=== PATIENT | female | born 1995 | race Caucasian/White ===

== ENCOUNTER 2016-12-17 18:57 | Emergency (ER) | payer OTHER ==
[~2016-12-17] VITALS: Ht 160 cm; Wt 89.4 kg
[2016-12-17 21:12] LABS: UA SPECIFIC GRAVITY >=1.030 (1.005-1.035); microscopic required? YES; urine erythrocyte NEGATIVE (NEGATIVE)
[2016-12-17 21:18] LABS: BASOPHIL % 0.3 % (0-2); PLATELET COUNT 355 x10^3mcL (130-400)
[2016-12-17 23:15] VITALS: BP 128/69
== END 2016-12-17 23:15 | disposition home or self-care (01) ==
LOC: ED 18:57
PROVIDERS: Emergency Medicine
DX: O20.0 Threatened abortion (principal); Z3A.00 Weeks of gestation of pregnancy not specified

== ENCOUNTER 2019-05-31 23:42 | Emergency (ER) | payer OTHER ==
[~2019-05-31] VITALS: Ht 160 cm; Wt 100.3 kg
[2019-05-31 23:46] VITALS: Ht 160 cm; Wt 100.3 kg
[2019-06-01 01:44] VITALS: BP 115/74
== END 2019-06-01 01:44 | disposition home or self-care (01) ==
LOC: ED 23:42
DX: J20.9 Acute bronchitis, unspecified (principal)